=== PATIENT | female | born 1990 | race Hispanic/Latino ===

== ENCOUNTER 2018-12-23 11:13 | Day surgery (SDC) | payer SELFPAY ==
[2018-12-23 12:19] VITALS: BMI 25.7
[2018-12-23] MEDS ORDERED: hydrALAZINE 20 MG/ML VIAL SLOW IVP PRN (12:35)
[2018-12-23 13:03] LABS: Bacteria/HPF None Seen HPF (None Seen); Bilirubin Negative (Negative); Blood, Urine Negative (Negative); Clarity Clear (Clear); Glucose, Urine (Dipstick) Normal (Negative); Leukocyte Negative Leu/uL (Negative); Mucous/LPF Rare LPF (<2+); Nitrite Negative (Negative); Protein, Urine (Dipstick) Negative (Neg-Trace); RBC/HPF 0-3 HPF (0-3); Squamous Epithelial 0-3 HPF (0-3); Urobilinogen Normal mg/dL (Less than 2); WBC/HPF 0-3 HPF (0-3)
--- NOTE | 2018-12-23 13:55 | PRG ---
DATE OF SERVICE: 12/23/2018 PRIMARY OB[place]. CHIEF COMPLAINT: Dysuria and hesitancy. HISTORY OF PRESENT ILLNESS: The patient is a 28-year-old female, G3, P0 with reported about 23 weeks' gestation, who is visiting from [place] until the end of the week. The patient reports that she has been experiencing hesitancy and dysuria since this morning and right flank pain. The patient reports she does have a history of recurrent urinary tract infections with this and has been on multiple medications. She also reports she has been feeling abdominal pain, bandlike pains that she would contribute to contractions. She reports a total of 3. The patient also reports diagnosis of cervical incompetence with this due to shortened cervix from a cervical LEEP procedure. The patient is unable to tell me how long the cervix was described, but does report she is on progesterone supplementation. PAST MEDICAL HISTORY: Negative. PAST SURGICAL HISTORY: She has had a LEEP procedure, conization of the cervix. OB HISTORY: She has had two first trimester losses. SOCIAL HISTORY: Denies drug, alcohol, or tobacco use. ALLERGIES: IBUPROFEN. OB LABS: Unavailable at time of dictation. REVIEW OF SYSTEMS: The patient denies headache, chest pain, shortness of breath , nausea, vomiting, diarrhea, constipation, hip problems, knee problems, or muscle weakness. She does report the right flank pain and the suprapubic pain and dysuria. Denies vaginal bleeding or leakage of fluid. PHYSICAL EXAMINATION: VITAL SIGNS: Blood pressure 123/87, heart rate of 80, respiratory rate of 20, saturating 96% on room air, and temperature 98.5. GENERAL: She appears to be in no acute distress. She is alert, oriented, cooperative, and pleasant to interact with. HEAD: Normocephalic and atraumatic. LUNGS: Clear to auscultation bilaterally. HEART: Has regular rate and rhythm. ABDOMEN: Soft and gravid. She does have some tenderness on the right side. She has some suprapubic tenderness. She has CVA tenderness on the right side, none on the left. EXTREMITIES: Nontender and nonedematous. : Deferred. heart tracing shows the fetus in the 140s with moderate long-term variability, some irritability seen on the tocometer. LABORATORY DATA: Urinalysis shows a urine with no ketones, no nitrites, no leukocyte esterase, no white blood cells, no squamous cells, no bacteria. Ultrasound for cervical length is pending. ASSESSMENT AND PLAN: The patient is a 28-year-old female with a history of recurrent urinary tract infections, who on a cath. Specimen shows no evidence of infection today nor evidence of blood to suggest stone or any kind of leukouria or ketones. We will move forward with a exam to look at the urethra and test the patient for other infections. Fetus is reassuring for gestational age. addendum 1500 ua returned completely void of any evidence of infection. Gu exam performed and immediately seen was erythema of the labia and vestibule area. This are is very irritated with tenderness to palpation present. Vaginal canal is also tender to palpation. Granular discharge present. Cervix firm and closed. No desquamative appearance. US - cervical length 2cm. A/P MS Treadwell is a 28yo female with vestibular and vulvar irritation that seems to be the result of her painful urination. No evidence of uti. I will treat empirically for yeast infection with diflucan 150mg 1 tab qwk x2. PT has a significantly shortened cervix. There is indication for a prophylactic cerclage. Pt reports that her doctor discussed the possible need of a cerclage. . I have reiterated that recommendation. Cervix is hard with out evidence of beaking and dont believe this is an emergency. Pt has been on progesterone supplementation and bed rest yet came yesterday to [place] bus ride. I have recommended that she return to her doctor before the scheduled /. She should not be travelling. She should remain in her [place] home and follow her doctor reccomendations. Job ID: [id number] [facility]
--- NOTE | 2018-12-23 16:01 | ULT ---
LIMITED OB ULTRASOUND: 12/23/18 HISTORY: Evaluation of cervical canal length. Real time imaging of the pelvis shows a single viable intrauterine in a vertex presentation . The placenta is posterior in location without evidence of previa. The heart rate is 153 beat s per minute. Amniotic fluid appears adequate with an amniotic fluid index of 10.6. The cervical canal length is approximately 2.1 cm. IMPRESSION: Cervical canal length of 2.1 cm. POS: [facility]
[2018-12-28 00:37] LABS: Chlamydia by PCR Not Detected (NotDetected); GC by PCR Not Detected (NotDetected)
== END 2018-12-23 15:20 | disposition home or self-care (01) ==
LOC: L&D/OP 11:13
PROVIDERS: ATTEND Obstetrics & Gynecology
DX: O99.89 Other specified diseases and conditions complicating pregnancy, childbirth and the puerperium (principal); N89.8 Other specified noninflammatory disorders of vagina; R30.0 Dysuria; R39.11 Hesitancy of micturition; O34.32 Maternal care for cervical incompetence, second trimester; Z87.440 Personal history of urinary (tract) infections; Z88.6 Allergy status to analgesic agent; Z79.82 Long term (current) use of aspirin; Z79.899 Other long term (current) drug therapy; Z3A.23 23 weeks gestation of pregnancy
CPT/HCPCS: 36415; 51701; 76815; 81001; 87480; 87491; 87510; 87591; 87660; 99284

== ENCOUNTER 2022-01-05 09:09 | Emergency (ER) | payer SELFPAY ==
[2022-01-05 09:49] LABS: ALT (SGPT) 29 U/L (8-55); AST (SGOT) 19 U/L (5-34); Albumin 3.9 g/dL (3.5-5.0); Alkaline Phosphatase 77 U/L (40-110); Anion Gap 12 mmol/L (10-20); BUN (Urea Nitrogen) 7 mg/dL (7.0-18.7); Bilirubin, Total 0.4 mg/dL (0.2-1.2); Calc. Creatinine Clearance 0 mL/min (70-130); Calcium 9.1 mg/dL (7.8-10.44); Carbon Dioxide 24 mmol/L (22-29); Chloride 105 mmol/L (98-107); Estimated GFR 115; Globulin 3.4 g/dL (2.4-3.5); Glucose 116 mg/dL (70-105); Lipase 13 U/L (8-78); Potassium 4.1 mmol/L (3.5-5.1); Protein, Total 7.3 g/dL (6.0-8.3); Sodium 137 mmol/L (136-145)
[2022-01-05 12:20] LABS: #Eosinphils 0.1 thou/uL (0.0-0.7); #Lymphocytes 3.2 thou/uL (1.20-3.40); #Monocytes 0.7 thou/uL (0.11-0.59); #Neutrophils 7.3 thou/uL (1.40-6.50); %Basophils 0.3 % (0.0-1.0); %Eosinophils 1.1 % (0.0-10.0); %Lymphocytes 28.3 % (21.0-51.0); %Monocytes 6.1 % (0.0-10.0); %Neutrophils 64.1 % (42.0-75.0); Hemoglobin 13.7 g/dL (12.0-16.0); Mean Corpuscular HGB CONC 31.9 g/dL (32.0-36.0); Mean Corpuscular Hemoglobin 27.3 pg (27.0-31.0); Mean Corpuscular Volume 85.6 fL (78.0-98.0); Mean Platelet Volume 7.8 fL (7.4-10.4); Platelet Count 309 thou/uL (130-400); Red Blood Cell (RBC) Count 4.99 mill/uL (4.20-5.40); White Blood Cell (WBC) Count 11.3 thou/uL (4.8-10.8)
[2022-01-05 13:03] LABS: Bilirubin Negative (Negative); Blood, Urine Negative (Negative); Clarity Clear (Clear); Glucose, Urine (Dipstick) Normal (Negative); Ketone, Urine Negative (Negative); Leukocyte 250 Leu/uL (Negative); Nitrite Negative (Negative); Protein, Urine (Dipstick) Negative (Neg-Trace); RBC/HPF 0-3 HPF (0-3); Squamous Epithelial 0-3 HPF (0-3); Urobilinogen Normal mg/dL (Less than 2); WBC/HPF 0-3 HPF (0-3); pH, Urine 5.5 (5.0-9.0)
[2022-01-05 13:04] LABS: Bacteria/HPF 1+ HPF (None Seen)
== END 2022-01-05 13:37 | disposition home or self-care (01) ==
LOC: ERS 09:09
DX: O34.81 Maternal care for other abnormalities of pelvic organs, first trimester (principal); N83.201 Unspecified ovarian cyst, right side; O99.891 Other specified diseases and conditions complicating pregnancy; R82.71 Bacteriuria; Z3A.01 Less than 8 weeks gestation of pregnancy
CPT/HCPCS: 36415; 76856; 80053; 81003; 81015; 83690; 84702; 85025; 86900; 86901